=== PATIENT | female | born 1960 | race Hispanic/Latino ===

== ENCOUNTER 2021-12-27 05:32 | Inpatient (IN) | payer OTHER ==
[2021-12-26 12:11] LABS: BASOPHILS % (AUTO) 1.2 % (0.0-5.0); EOSINOPHILS % (AUTO) 1.6 % (0.0-8.0); HEMATOCRIT 41.8 % (36-48); LYMPHOCYTES % (AUTO) 17.6 % (21.0-51.0); MEAN CORPUSCULAR HEMOGLOBIN 31.5 pg (27.0-33.0); MEAN CORPUSCULAR HGB CONC 30.9 g/dL (32.0-36.0); MONOCYTES % (AUTO) 7.5 % (3.0-13.0); PLATELET COUNT (AUTO) 255 K/uL (130-400); RED CELL DISTRIBUTION WIDTH 17.4 % (11.0-15.5); WHITE BLOOD COUNT (AUTO) 8.8 K/uL (4.8-10.8)
[2021-12-26 12:29] LABS: INR 0.93 (0.85-1.15); PROTHROMBIN TIME 10.1 SEC (9.6-11.6)
[2021-12-26 12:31] LABS: PARTIAL THROMBOPLASTIN TIME 25.1 SEC (26.3-35.5)
[2021-12-27] VITALS (20 sets, daily range): BP systolic 122–170; BP diastolic 67–91
[~2021-12-27] VITALS: Ht 154.9 cm; Wt 73.9 kg
[~2021-12-27 05:32] MED LIST: CALC667T8 PO; CEFAZOLIN SODIUM 1 GM VIAL IVP SCH; CLOP75TA32 PO; GLIM2TAB30 PO; LACTATED RINGERS 1000ML 1,000 ML IV SCH; LISI40TA9 PO; renavite PO
[2021-12-27] MEDS ORDERED: 0.9% NACL 500ML IV.SOLN 500 ML IV ONE (05:51)
[2021-12-27] MEDS: ACETAMINOPHEN 325 MG TAB PO PRN (10:13)
[2021-12-27] MEDS ORDERED: LISINOPRIL 40 MG TABLET PO SCH (14:30)
[2021-12-27] MEDS: INSULIN HUMULIN R 100 UNIT/ML 3ML SQ SCH ×2 (16:30→20:48)
[2021-12-28] VITALS (31 sets, daily range): BP systolic 126–190; BP diastolic 7–91
[2021-12-28] MEDS: INSULIN HUMULIN R 100 UNIT/ML 3ML SQ SCH ×2 (06:25→12:26)
[2021-12-28 06:43] LABS: HEMATOCRIT 39.2 % (36-48); MEAN CORPUSCULAR HEMOGLOBIN 30.9 pg (27.0-33.0); MEAN CORPUSCULAR HGB CONC 31.1 g/dL (32.0-36.0); MEAN CORPUSCULAR VOLUME 99.2 fL (79-99); RED BLOOD CELL COUNT(AUTO) 3.95 MIL/uL (4.00-5.50); RED CELL DISTRIBUTION WIDTH 17.1 % (11.0-15.5); WHITE BLOOD COUNT (AUTO) 7.1 K/uL (4.8-10.8)
[2021-12-28 06:52] LABS: CREATININE 7.6 mg/dL (0.5-1.5); PHOSPHORUS 6.7 mg/dL (2.5-4.9); POTASSIUM 5.3 mmol/L (3.5-5.1)
[2021-12-28] MEDS ORDERED: CEFAZOLIN SODIUM 1 GM VIAL ONE (06:55)
[2021-12-28] MEDS ORDERED: FAMOTIDINE 20MG VIAL IV ONE (07:07)
[2021-12-28] MEDS ORDERED: ROCURONIUM 10MG/1ML SYR 10 MG/ML ML ONE (07:10)
[2021-12-28] MEDS ORDERED: FENTANYL CITRATE PF 50 MCG/1 ML 2ML VIAL ONE (07:10)
[2021-12-28] MEDS ORDERED: PROPOFOL 10 MG/ML 20ML VIAL IV ONE (07:10)
[2021-12-28] MEDS ORDERED: GLYCOPYRROLATE 1 MG/5 ML SYRINGE ONE (07:10)
[2021-12-28] MEDS ORDERED: ONDANSETRON 4MG INJ ONE ×2 (07:43→09:23)
[2021-12-28] MEDS ORDERED: PHENYTOIN 100MG (50MG/ML) INJ 100 MG/2 ML ML IV ONE (07:53)
[2021-12-28] MEDS ORDERED: HYDROMORPHONE 1 MG INJ ONE ×2 (07:55→09:18)
[2021-12-28] MEDS: CALCIUM AC 667MG CAP PO SCH (08:00)
[2021-12-28] MEDS ORDERED: LABETALOL 20MG SYG IV ONE (10:08)
[2021-12-28] MEDS: ONDANSETRON 4MG INJ IVP PRN ×2 (12:16→19:49)
[2021-12-28] MEDS: Vitamin B Complex/Vit C/Folic Acid PO SCH (14:42)
[2021-12-28] MEDS: GLIMEPIRIDE 2 MG TABLET PO SCH (14:43)
[2021-12-28] MEDS: CLOPIDOGREL 75MG TAB PO SCH (16:01)
[2021-12-28] MEDS: INSULIN R PO SS1 SQ SCH ×2 (16:50→21:00)
[2021-12-28] MEDS: HYDROMORPHONE 0.5 MG SYG (0.5MG/0.5ML) IVP PRN (20:00)
[2021-12-29] VITALS (21 sets, daily range): BP systolic 102–169; BP diastolic 54–91
[2021-12-29] MEDS: ONDANSETRON 4MG INJ IVP PRN (03:32)
[2021-12-29] MEDS: HYDROMORPHONE 0.5 MG SYG (0.5MG/0.5ML) IVP PRN (03:32)
[2021-12-29] MEDS ORDERED: ACETAMINOPHEN WITH CODEINE 1 TAB TAB PO PRN (04:30)
[2021-12-29 05:46] LABS: HEMATOCRIT 40.6 % (36-48); MEAN CORPUSCULAR HEMOGLOBIN 31.3 pg (27.0-33.0); MEAN CORPUSCULAR HGB CONC 31.5 g/dL (32.0-36.0); MEAN CORPUSCULAR VOLUME 99.3 fL (79-99); RED BLOOD CELL COUNT(AUTO) 4.09 MIL/uL (4.00-5.50)
[2021-12-29 06:04] LABS: PHOSPHORUS 8.3 mg/dL (2.5-4.9)
[2021-12-29 06:08] LABS: CREATININE 10.3 mg/dL (0.5-1.5); POTASSIUM 7.2 mmol/L (3.5-5.1)
[2021-12-29] MEDS: INSULIN R PO SS1 SQ SCH ×4 (06:38→21:00)
[2021-12-29] MEDS ORDERED: DOCUSATE SODIUM 100 MG CAP PO PRN (09:00)
[2021-12-29] MEDS ORDERED: BISACODYL 10 MG SUPP.RECT RC PRN (09:00)
[2021-12-29] MEDS ORDERED: ACETAMINOPHEN 325 MG TAB PO PRN (10:30)
[2021-12-29] MEDS: SIMETHICONE 80 MG TAB.CHEW PO PRN ×2 (13:55→23:26)
[2021-12-29] MEDS: Vitamin B Complex/Vit C/Folic Acid PO SCH (13:56)
[2021-12-29] MEDS: CLOPIDOGREL 75MG TAB PO SCH (13:56)
[2021-12-29] MEDS: GLIMEPIRIDE 2 MG TABLET PO SCH (13:56)
[2021-12-29] MEDS: ACETAMINOPHEN 325 MG TAB PO PRN (19:08)
[2021-12-30] MEDS: HYDROCODONE/ACETAMINOPHEN 5/325 MG TAB PO PRN ×2 (03:13→11:32)
[2021-12-30 03:20] VITALS: BP 143/76
[2021-12-30 05:51] LABS: HEMATOCRIT 40.6 % (36-48); MEAN CORPUSCULAR HEMOGLOBIN 31.4 pg (27.0-33.0); MEAN CORPUSCULAR HGB CONC 31.5 g/dL (32.0-36.0); MEAN CORPUSCULAR VOLUME 99.5 fL (79-99); RED BLOOD CELL COUNT(AUTO) 4.08 MIL/uL (4.00-5.50); RED CELL DISTRIBUTION WIDTH 17.1 % (11.0-15.5); WHITE BLOOD COUNT (AUTO) 14.9 K/uL (4.8-10.8)
[2021-12-30 06:33] LABS: PHOSPHORUS 9.3 mg/dL (2.5-4.9)
[2021-12-30 06:36] LABS: CREATININE 7.9 mg/dL (0.5-1.5)
[2021-12-30 06:38] LABS: POTASSIUM 5.7 mmol/L (3.5-5.1)
[2021-12-30] MEDS: INSULIN R PO SS1 SQ SCH ×2 (07:30→11:30)
[2021-12-30 07:45] VITALS: BP 103/51
[2021-12-30] MEDS: GLIMEPIRIDE 2 MG TABLET PO SCH (08:52)
[2021-12-30] MEDS: Vitamin B Complex/Vit C/Folic Acid PO SCH (08:52)
[2021-12-30] MEDS: CLOPIDOGREL 75MG TAB PO SCH (08:53)
[2021-12-30] MEDS: CALCIUM AC 667MG CAP PO SCH ×2 (08:53→09:00)
[2021-12-30 11:32] VITALS: BP 121/59
[2021-12-30] MEDS ORDERED: ACET-2079 PO (13:29)
== END 2021-12-30 14:30 | disposition home or self-care (01) | DRG 742 ==
LOC: DAH 05:32 → WSH 05:33 → UNDOADMOB 05:33 → OBSVTOIN 05:33 → WSH 09:03 → OBSVTOIN 12-29 16:13 → INTOOBSV 12-29 16:13
PROVIDERS: ADMIT Internal Medicine Nephrology; ATTEND Internal Medicine Nephrology
PROC: 5A1D70Z Performance of Urinary Filtration, Intermittent, Less than 6 Hours Per Day (ICD-10-PCS; 2021-12-27)
PROC: 0UB27ZZ Excision of Bilateral Ovaries, Via Natural or Artificial Opening (ICD-10-PCS; 2021-12-28)
PROC: 0UB77ZZ Excision of Bilateral Fallopian Tubes, Via Natural or Artificial Opening (ICD-10-PCS; 2021-12-28)
PROC: 0UQF0ZZ Repair Cul-de-sac, Open Approach (ICD-10-PCS; 2021-12-28)
PROC: 0UT97ZL Resection of Uterus, Supracervical, Via Natural or Artificial Opening (ICD-10-PCS; principal; 2021-12-28 07:00)
PROC: 5A1D70Z Performance of Urinary Filtration, Intermittent, Less than 6 Hours Per Day (ICD-10-PCS; 2021-12-29)
PROC: 0T9B30Z Drainage of Bladder with Drainage Device, Percutaneous Approach (ICD-10-PCS; 2021-12-29)
DX: N81.3 Complete uterovaginal prolapse (principal); N18.6 End stage renal disease; I12.0 Hypertensive chronic kidney disease with stage 5 chronic kidney disease or end stage renal disease; D06.9 Carcinoma in situ of cervix, unspecified; D64.9 Anemia, unspecified; E78.5 Hyperlipidemia, unspecified; E11.22 Type 2 diabetes mellitus with diabetic chronic kidney disease; E87.5 Hyperkalemia; Z99.2 Dependence on renal dialysis
CPT/HCPCS: 36415; 80048; 82948; 84100; 84132; 85025; 85027; 85610; 85730; 86850; 86900; 86901; 87635; 90935; 93005; C9803; G0378; J0690; J1165; J1170; J1815; J2405; J2704; J3010; J3490; J7040; J7120